=== PATIENT | female | born 2000 | race Caucasian/White ===

== ENCOUNTER 2022-10-06 21:35 | Outpatient (CLI) | payer OTHER ==
--- NOTE | 2022-10-08 08:53 | XRAY Report ---
PROCEDURE: Wrist 3 View RT INDICATIONS: ABRASION OF RIGHT HAND TECHNIQUE: 3 views of the wrist were acquired. COMPARISON: None. FINDINGS: Bones: Subtle lucency in the ulnar styloid, which may represent a nondisplaced ulnar styloid fracture or artifact. No dislocations. No suspicious bony lesions. Soft tissues: No suspicious soft tissue calcifications. Diffuse soft tissue swelling. IMPRESSION: Nondisplaced fracture versus artifact in the ulnar styloid. If clinical symptoms persist, recommend a repeat examination in 7-10 days. Reviewed by: Chris Garibay MD on 10/08/2022 8:52 AM [facility] Approved by: Chris Garibay MD on 10/08/2022 8:52 AM [facility] Station ID: [id number]
== END 2022-10-06 21:36 | disposition home or self-care (01) ==
LOC: DI 21:35
PROVIDERS: ATTEND Physician Assistant
DX: S60.511A Abrasion of right hand, initial encounter (principal); R93.6 Abnormal findings on diagnostic imaging of limbs